=== PATIENT | male | born 1960 | race African-American/Black ===

== ENCOUNTER 2024-01-22 22:24 | Emergency (ER) | payer SELFPAY ==
[~2024-01-22] VITALS: Ht 180.3 cm; Wt 77.3 kg
[~2024-01-22 22:24] MED LIST: ATARAX 25MG25 MG/TAB PO; NATURAL MAGNES200 MG PO; PEPCID 20MG TAB20 MG PO; PHARMASSURE ZIN50 MG PO; PREDNISONE20 MG PO; PROVENTIL0.09 MG/A1 IH; RT ADVAIR 528 DISKUS IH; RT SPIRIVA18 MCG IH; SINGULAIR 110 MG/TAB PO; VITAMIN B12 781 TAB PO
[2024-01-22 22:28] VITALS: TEMP 98.8
[2024-01-22] MEDS ORDERED: Acetaminophen 500 MG TAB PO ONE (23:00)
[2024-01-22] MEDS ORDERED: NS 1,000 ML IV ONE (23:00)
[2024-01-22] MEDS ORDERED: Ondansetron 4 MG/2 ML VIAL IV ONE (23:00)
[2024-01-22 23:17] LABS: COLLECTION METHOD CLEAN CATCH
[2024-01-22 23:20] LABS: PH 6.5 (5.0-8.5); URINE APPEARANCE CLEAR (CLEAR/HAZY); URINE BLOOD NEGATIVE (NEGATIVE); URINE COLOR YELLOW (YELLOW); URINE GLUCOSE NEGATIVE (NEGATIVE); URINE KETONE NEGATIVE (NEGATIVE); URINE NITRATE NEGATIVE (NEGATIVE); URINE PROTEIN(semi-quant) NEGATIVE (NEGATIVE); URINE UROBILINOGEN 0.2 E.U/dL (0.2-1.0)
[2024-01-22 23:39] LABS: TRICYCLIC ANTIDEPRESS URINE NEGATIVE (NEGATIVE)
[2024-01-22 23:41] LABS: BASO % 0.2 % (0.0-2.0); EOS # 0.1 K/mm3 (0.0-0.7); EOS % 1.6 % (0.0-4.0); GRAN # 1.9 K/mm3 (1.4-6.5); GRAN % 44.9 % (42.2-75.2); HEMATOCRIT 39.1 % (42.0-52.0); LYMPH # 1.7 K/mm3 (1.2-3.4); LYMPH % 39.5 % (20.0-51.0); MEAN CELL VOLUME 94 fl (80.0-100.0); MEAN CORPUSCULAR HEMOGLOBIN 31 pg (27-31); MEAN CORPUSCULAR HGB CONC 33 g/dl (33.0-37.0); MEAN PLATELET VOLUME 8.9 fl (7.4-10.4); MONO # 0.6 K/mm3 (0.1-0.6); MONO % 13.6 % (1.7-9.3); PLATELET COUNT 214 K/mm3 (130-400); RED BLOOD COUNT 4.14 M/mm3 (4.20-5.60); REDCELL DISTRIBUTION WIDTH-CV 13.6 % (11.5-14.5)
[2024-01-22 23:54] LABS: ALANINE AMINOTRANSFERASE 24 U/L (0-55); ALBUMIN 3.6 g/dL (3.4-4.8); ALKALINE PHOSPHATASE 67 U/L (40-150); ANION GAP 9 mmol/L (7-16); AST,SGOT 27 U/L (5-34); BILIRUBIN,TOTAL 0.6 mg/dL (0.2-1.2); BLOOD UREA NITROGEN 11 mg/dL (8-26); CALCIUM 9.2 mg/dL (8.4-10.2); CHLORIDE 108 mEq/L (98-107); CREATININE, serum 0.92 mg/dL (0.72-1.25); GLUCOSE 93 mg/dL (70-99); POTASSIUM 3.7 mEq/L (3.5-4.5); SODIUM 139 mEq/L (136-145); TOTAL PROTEIN 6.9 g/dl (6.2-8.1)
[2024-01-22 23:57] LABS: ALCOHOL(ethanol),MEDICAL < 10 mg/dL (0-10)
[2024-01-23 00:05] LABS: TROPONIN-I < 0.010 ng/mL (0.00-0.033)
[2024-01-23] MEDS ORDERED: Cetirizine 10 MG TAB PO ONE (01:15)
[2024-01-23 01:40] VITALS: BP 134/88; PULSE 70
== END 2024-01-23 01:32 | disposition home or self-care (01) ==
LOC: COL.ER 22:24 → EDBD 22:24 → COL.ER 01-23 01:32
PROVIDERS: Emergency Medicine
DX: M54.2 Cervicalgia (principal); R51.9 Headache, unspecified; V43.52XA Car driver injured in collision with other type car in traffic accident, initial encounter; Y92.410 Unspecified street and highway as the place of occurrence of the external cause
CPT/HCPCS: J2405; J7030

== ENCOUNTER 2024-04-01 15:53 | Inpatient (IN) | payer BC ==
[2024-04-01] VITALS (13 sets, daily range): BP systolic 111; BP diastolic 82; PULSE 74; TEMP 98; O2SAT 95–99
[~2024-04-01] VITALS: Ht 180.3 cm; Wt 82.7 kg
[2024-04-01] MEDS ORDERED: dexAMETHasone 10 MG/ML VIAL IV ONE (16:15)
[2024-04-01] MEDS ORDERED: Albuterol/Ipratropium 3 MG-0.5 MG/3 ML Neb Soln IH SCH (16:15)
[2024-04-01 16:17] LABS: BASO % 0.3 % (0.0-2.0); EOS # 0.1 K/mm3 (0.0-0.7); GRAN # 2.1 K/mm3 (1.4-6.5); GRAN % 35.2 % (42.2-75.2); HEMOGLOBIN 15.3 g/dl (13.5-18.0); LYMPH # 3.3 K/mm3 (1.2-3.4); LYMPH % 54.8 % (20.0-51.0); MEAN CELL VOLUME 97 fl (80.0-100.0); MEAN CORPUSCULAR HEMOGLOBIN 33 pg (27-31); MEAN CORPUSCULAR HGB CONC 34 g/dl (33.0-37.0); MONO # 0.5 K/mm3 (0.1-0.6); MONO % 7.4 % (1.7-9.3); PLATELET COUNT 288 K/mm3 (130-400); RED BLOOD COUNT 4.65 M/mm3 (4.20-5.60)
[2024-04-01 16:32] LABS: BILIRUBIN,TOTAL 0.8 mg/dL (0.2-1.2); CALCIUM 9.3 mg/dL (8.4-10.2); CREATININE, serum 1.03 mg/dL (0.72-1.25); POTASSIUM 4.3 mEq/L (3.5-4.5); TOTAL PROTEIN 8.1 g/dl (6.2-8.1)
[2024-04-01] MEDS ORDERED: Doxycycline Hyclate 100 MG in NS 150 ML IV ONE (17:00)
[2024-04-01] MEDS ORDERED: LIPITOR 40MG TA40 MG PO (17:18)
[2024-04-01] MEDS ORDERED: WIXELA 500-501 EACH IH (17:19)
[2024-04-01] MEDS ORDERED: Ondansetron 4 MG/2 ML VIAL IV PRN (19:00)
[2024-04-01] MEDS ORDERED: Formoterol Neb Soln 20 MCG/2 ML UD IH SCH (19:00)
[2024-04-01] MEDS ORDERED: Acetaminophen 325 MG TAB PO PRN (19:00)
[2024-04-01] MEDS ORDERED: Albuterol/Ipratropium 3 MG-0.5 MG/3 ML Neb Soln IH PRN (19:00)
[2024-04-01] MEDS ORDERED: Docusate Sodium 100 MG CAP PO PRN (19:00)
[2024-04-01] MEDS ORDERED: Polyethylene Glycol 3350 17 GM PDS PO PRN (19:00)
[2024-04-01] MEDS ORDERED: Budesonide Neb Susp 0.5 MG/2 ML AMP IH SCH (19:00)
[2024-04-01] MEDS ORDERED: Iohexol 300 - 100 ML VIAL IV ONE (20:33)
[2024-04-01] MEDS ORDERED: Atorvastatin 40 MG TAB PO SCH (21:00)
[2024-04-01 21:22] LABS: ARTERIAL BLD GAS O2 SATURATION 99.1 % (92-100); ARTERIAL BLD GAS TCO2 CT 24.5; ARTERIAL BLOOD GAS BASE EXCESS -0.6 (-2-2); ARTERIAL BLOOD GAS HCO3 23.4 meq/L (22-26); ARTERIAL BLOOD GAS PCO2 36.6 mmHg (35-45); ARTERIAL BLOOD GAS pH 7.42 (7.35-7.45)
[2024-04-01 21:23] LABS: ARTERIAL BLOOD GAS PO2 162.7 mmHg (80-100)
--- NOTE | 2024-04-01 21:41 | NUR ---
2013 Report received from PHIL Sahni. [id number] Pt arrived to ICU from ED. Pt transported to ICU via ED cart with PHIL Sahni at bedside. This RN met in room at this time. Pt transferred from ED cart to ICU bed via SBA without difficulty. RT to bedside to assist with BiPAP setup and attachment to pt. Monitors attached to pt. Pt changed into gown. Pt refused to remove pants from home. Pt refused to remove socks from home. Pt belongings (shoes and bag) placed in cabinet upon arrival. VSS. IV not infusing with any medications, but able to flush without difficulty. Upon further assessment, there appears to be some language barrier between medical staff and pt. Pt does not seem to understand questions that are asked due to language barrier, hard to receive answers about home medications due to this. Pt denies pain or discomfort at this time. Pt states that he would like to sleep. Pt tolerating BiPAP well at this time. Transfer of care completed at this time.
[2024-04-02] VITALS (225 sets, daily range): BP systolic 105–141; BP diastolic 56–88; PULSE 70–84; TEMP 98–98.8; O2SAT 88–100
--- NOTE | 2024-04-02 00:36 | NUR ---
Upon discussing home medications with pt, pt states "I take them when I feel like I need them". Through discussion, it seems that the pt is noncompliant with medications that are prescribed to him and nothing is taken on a regular basis or as prescribed. It is hard to determine when medications were last taken or if pt takes some home medications at all.
[2024-04-02 04:47] LABS: GRAN # 4.9 K/mm3 (1.4-6.5); GRAN % 85.1 % (42.2-75.2); HEMATOCRIT 41.9 % (42.0-52.0); HEMOGLOBIN 14.6 g/dl (13.5-18.0); LYMPH # 0.8 K/mm3 (1.2-3.4); LYMPH % 13.2 % (20.0-51.0); MEAN CELL VOLUME 94 fl (80.0-100.0); MEAN CORPUSCULAR HEMOGLOBIN 33 pg (27-31); MEAN CORPUSCULAR HGB CONC 35 g/dl (33.0-37.0); MONO # 0.1 K/mm3 (0.1-0.6); MONO % 1.4 % (1.7-9.3); PLATELET COUNT 242 K/mm3 (130-400); RED BLOOD COUNT 4.46 M/mm3 (4.20-5.60)
[2024-04-02] MEDS ORDERED: Doxycycline Hyclate 100 MG in NS 150 ML IV SCH (05:00)
[2024-04-02 05:06] LABS: CREATININE, serum 0.97 mg/dL (0.72-1.25); POTASSIUM 4.5 mEq/L (3.5-4.5)
--- NOTE | 2024-04-02 08:58 | NUR ---
SW met with patient to complete initial assessment for discharge planning. Patient stating "I want to sleep" but was willing to answer questions for SW . Patient verified that he lives in [place] with his and 5 children. He lists his Nissa ([phone]) and his son Bobby ([phone]) as contacts. He denies having completed a DPOA. Patient sees Dr. Mitzi Stuart as his PCP and uses [facility] pharmacy. Patient is covered by [employer] insurance and uses no DME. Patient reports to be independent with all activities. Plan is to return home with family at discharge. Discharge plan: Home
[2024-04-02] MEDS ORDERED: Tiotropium 2.5 MCG Respimat MDI IH SCH (09:00)
[2024-04-02] MEDS ORDERED: Montelukast 10 MG TAB PO SCH (09:00)
[2024-04-02] MEDS ORDERED: dexAMETHasone 4 MG TAB PO SCH (09:00)
[2024-04-02] MEDS ORDERED: dexAMETHasone 10 MG/ML VIAL IV SCH (09:00)
[2024-04-02] MEDS ORDERED: Tiotropium 18 MCG **** subs to Tiotropium 5 mcg IH SCH (09:00)
--- NOTE | 2024-04-02 10:51 | NUR ---
Patient laying in bed with bipap on. Bipap was removed, was put on 1 liter of oxygen, then removed and has been on RA with saturations in the 90%, no difficulties at this time. He has requested that we leave him alone. Therefore will be bringing his meds in around lunch time and see if he is willing to take them. Will continue to monitor for significant changes in oxygen demands. Otherwise, he is stable at this time.
--- NOTE | 2024-04-02 16:18 | NUR ---
Patient arrived to the medical unit room 353. Alert and oriented x4, RA, denies any pain or discomfort. States he wants to take a shower. IV access covered, supplies provided. Tele removed.
--- NOTE | 2024-04-02 20:00 | NUR ---
UPON SHIFT ASSESSMENT, ZIGGY WAS SLEEPING IN BED AND EASILY AWAKENED. NO INCREASE WOB NOTED AND LUNG SOUNDS ARE CLEAR. RT EYE IS RED, BUT EXHIBITS NO DRAINAGE. PATIENT STATES THEY FEEL TIRED, "I WANT TO SLEEP." HE IS AXO X4 AND OTHERWISE PLEASANT. HE DISCUSSED WITH THIS NURSE HOW EXTERNAL EXPOSURE TO SHRIMP CAUSES AIRWAY RESTRICTION. EDUCATED PATIENT ON SEEKIN EPI-PEN. CALL LIGHT WITHIN REACH. VS ARE WNL.
--- NOTE | 2024-04-03 | NUR ---
PATIENT SITTING ON BEDSIDE WIDE AWAKE. DID ANNAMARIE UTILIZE CALL LIGHT. STATED HE WAS AWAITING IV FLUSH. PATIENT HAD TEMPORARY MEMORY LAPSE. DID NOT REMEBER IV FLUSH AT 2100 NOR REFUSING LOVENOX EARLIER IN DAY (PER DAYSHIFT REPORT GIVEN BY MADYSON). PATIENT WAS REORIENTED EASILY AND RETURNED TO BED, IV WRAPPED WITH TELMA HE SEEMED SOMEWHAT CONCERNED ABOUT PATENCY. CALL LIGHT WITHIN REACH
[2024-04-03 00:34] VITALS: BP 115/70; PULSE 71; TEMP 98.1
[2024-04-03] MEDS ORDERED: Carboxymethylcellulose PF Ophth 0.4 ML DROPPERETTE OP ONE (04:15)
[2024-04-03 04:47] VITALS: BP 110/58; PULSE 74; TEMP 98.2
[2024-04-03 07:17] LABS: BASO % 0.2 % (0.0-2.0); GRAN # 3.9 K/mm3 (1.4-6.5); GRAN % 65.1 % (42.2-75.2); HEMATOCRIT 42.2 % (42.0-52.0); HEMOGLOBIN 14.2 g/dl (13.5-18.0); LYMPH # 1.6 K/mm3 (1.2-3.4); MEAN CELL VOLUME 96 fl (80.0-100.0); MEAN CORPUSCULAR HEMOGLOBIN 32 pg (27-31); MEAN CORPUSCULAR HGB CONC 34 g/dl (33.0-37.0); MEAN PLATELET VOLUME 9.4 fl (7.4-10.4); MONO # 0.4 K/mm3 (0.1-0.6); MONO % 7.4 % (1.7-9.3); PLATELET COUNT 255 K/mm3 (130-400); RED BLOOD COUNT 4.38 M/mm3 (4.20-5.60); REDCELL DISTRIBUTION WIDTH-CV 14.3 % (11.5-14.5)
[2024-04-03 07:18] VITALS: BP 116/72; PULSE 73; TEMP 98.3
--- NOTE | 2024-04-03 07:30 | NUR ---
AFTER BEDSIDE REPORT HAND -OFF TO PHIL PEMBERTON, IT WAS NOTED THAT PATIENT SEEMED SAD AND WOULD NOT RESPOND OR INTERACT WITH STAFF. THIS WAS NOT HIS AFFECT THROUGHOUT THE SHIFT AND THIS NURSE RETURNED TO PATIENT'S ROOM TO ASK IF HE WOULD LIKE TO EITHER SPEAK WITH A DOCTOR, A MALE OR WITH EMIGDIO-HIS POINT OF CONTACT.HE KEPT SINGING A SONG IN HIS [place] LANGUAGE AND THE TONE AND RYTHMN SEEMED VERY SAD. HE SHOOK HIS HEAD NO WITH EVERY OFFER OF COMFORT. CALL LIGHT WITHIN REACH.
--- NOTE | 2024-04-03 07:34 | NUR ---
Bedside report received from PHIL Blake. Pt awake in bed refusing to speak to nursing staff at this time. Call light within reach.
[2024-04-03 07:40] LABS: CALCIUM 9.2 mg/dL (8.4-10.2); CREATININE, serum 1.14 mg/dL (0.72-1.25); POTASSIUM 4.2 mEq/L (3.5-4.5)
--- NOTE | 2024-04-03 08:41 | NUR ---
Pt awake in bed. Shift assessment completed. VSS. When speaking to pt, pt nods yes or no to questions. Pt does not verbally respond back to this nurse. ANA LILIA Ayon notified regarding possible language barrier and instructed this nurse to utilize legislative analyst when communicating with pt. Telemetry in place. Pt shakes head no when asked about pain. INT to Lt forearm patent with no swelling, redness, or draiange. Pt has no request at this time. Call light within reach.
--- NOTE | 2024-04-03 10:06 | NUR ---
Initial visit; Patient unable to understand [place] words nor sign language and wished to not be touched nor prayed for. School Superintendent unable to make contact with patient he even appeared fearful.
[2024-04-03] MEDS ORDERED: PREDNISONE20 MG PO (10:11)
[2024-04-03] MEDS ORDERED: SPIRIVA RE2.5 MCG/Ac IH (10:19)
[2024-04-03 11:12] VITALS: BP 115/68; PULSE 74; TEMP 98.4
--- NOTE | 2024-04-03 11:39 | NUR ---
Discharge instructions provided to pt spouse and spouse verbalized understanding of discharge paperwork. INT to Lt forearm discontinued with tip intact, pt tolerated well. Pt is leaving facility with spouse back to home.
== END 2024-04-03 12:05 | disposition home or self-care (01) | DRG 189 ==
LOC: COL.ER 15:53 → ICU 17:45 → MEDICAL 04-02 16:02
PROVIDERS: Nurse Practitioner; Nurse Practitioner Family; ADMIT Hospitalist
PROC: 5A09457 Assistance with Respiratory Ventilation, 24-96 Consecutive Hours, Continuous Positive Airway Pressure (ICD-10-PCS; principal; 2024-04-01)
DX: J96.01 Acute respiratory failure with hypoxia (principal); J45.31 Mild persistent asthma with (acute) exacerbation; I16.0 Hypertensive urgency; E78.5 Hyperlipidemia, unspecified; R07.89 Other chest pain
CPT/HCPCS: A9270; J1100; J8540; Q9967